=== PATIENT | female | born 1995 | race Hispanic/Latino ===

== ENCOUNTER 2020-10-31 17:58 | Outpatient (CLI) | payer OTHER ==
[~2020-10-31] VITALS: Ht 154.9 cm; Wt 60.3 kg
[2020-10-31 18:24] VITALS: BP 121/58
[2020-10-31] MEDS ORDERED: IRON27TA2 PO (18:27)
[2020-10-31] MEDS ORDERED: ASPI81TA26 PO (18:27)
[2020-10-31] MEDS ORDERED: VITA250T4 PO (18:27)
[2020-10-31] MEDS ORDERED: MULTTAB20 PO (18:27)
[2020-10-31 20:11] LABS: ALBUMIN 2.5 GM/DL (3.2-5.2); ALT/SGPT 12 U/L (12-78); AMYLASE 104 U/L (25-115); BILIRUBIN,TOTAL 0.3 MG/DL (0.2-1.0); BLOOD UREA NITROGEN 5 MG/DL (7-18); CALCIUM LEVEL 8.5 MG/DL (8.5-10.1); CARBON DIOXIDE LEVEL 24 MEQ/L (21-32); CHLORIDE LEVEL 106 MEQ/L (98-107); CREATININE FOR GFR 0.44 MG/DL (0.55-1.30); GLOMERULAR FILTRATION RATE > 60.0 (>60); GLUCOSE, FASTING 108 MG/DL (70-100); LIPASE 110 U/L (73-393); POTASSIUM SERUM 3.7 MEQ/L (3.5-5.1); SODIUM LEVEL 138 MEQ/L (136-145); TOTAL PROTEIN 5.9 GM/DL (6.4-8.2)
[2020-10-31 20:15] VITALS: BP 107/52
[2020-10-31] MEDS ORDERED: metroNIDAZOLE (FLAGYL) 500MG TABLET PO ONE (20:20)
--- NOTE | 2020-10-31 20:52 | IPNPDOC ---
Text Note Date of Service The patient was seen on 10/31/20. NOTE PRE-TERM LABOR TRIAGE EVALUATION HPI: Mrs. Deyanira Retana is a 25yo at 28w0d ega, by LMP c/w 1st trimester ultrasound, who presents to rule-out pre-term labor. Mrs. Retaan reports abdominal discomfort with a single episode of emesis this morning at 01:00. Following, she experienced uncomfortable abdominal/pelvic pressure that is constant. She endorses decreased FM & denies LOF & VB. Otherwise, she endorses urinary frequency. Denies dysuria/hematuria, abnor mal/foul smelling vaginal discharge, fevers/chills, headaches, visual changes, scotomata, RUQ pain, or worsening edema. 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 PHYSICAL EXAMINATION: VS: Normotensive, Afebrile Gen: AAox3, NAD Abd: Gravid, soft, non-distended, NTTP LE: No c/c/e SSE: cervix visibily closed with no vaginal pooling of fluid. fFN obtained. THADDEUS: No hyphae or yeast Wet Prep: + clue cells. No trichomonas present. TVUS: Cervical length 4.1cm SVE: C/T/H NST: BL- 130bpm, moderate variability, + accelerations, - decelerations TOCO: No CTXs Labs: UA - Negative fFN - Discarded secondary to cervical length >2.5cm ASSESSMENT: 25yo at 28w0d ega with abdominal/pelvic pressure most likely secondary to vaginitis (bacterial vaginosis). PLAN: - Flagyl 500mg po bid x7-days for vaginitis - First dose now - Remaining 6.5-day supply called into [facility] [phone] - Pt to follow-up at her 28-week appointment on , 04 November 2020 at 13:30 - Discussed labor precautions and instructed to return to triage for the development of regular uterine contractions, LOF, VB, or decreased FM. - All questions answered Jan Beltran, Ph.D. JAGDEEP & OB-PLANT CULTURE MANAGER Staff VS,Anat I+Jennifer VS, Juan R Coppola+Jennifer Laboratory Tests 10/31/20 19:38 Vital Signs Date Time Temp Pulse Resp B/P (MAP) Pulse Ox O2 Delivery O2 Flow Rate FiO2 10/31/20 20:15 97.9 17 10/31/20 18:24 107 121/58 (79) TRINITY TAMEZ M.D. October 31, 2020 20:52
== END 2020-10-31 20:30 | disposition home or self-care (01) ==
LOC: M LDO 17:58
PROVIDERS: ATTEND Obstetrics & Gynecology Reproductive Endocrinology
DX: O23.593 Infection of other part of genital tract in pregnancy, third trimester (principal); O34.211 Maternal care for low transverse scar from previous cesarean delivery; Z3A.28 28 weeks gestation of pregnancy; Z87.51 Personal history of pre-term labor; Z87.59 Personal history of other complications of pregnancy, childbirth and the puerperium
CPT/HCPCS: 36415; 76815; 80053; 81001; 82150; 83690; G0378; G0463

== ENCOUNTER → 2020-12-17 | Outpatient (CLI) | payer OTHER ==
[~2020-12-17] MED LIST: ASPI81TA26 PO; IRON27TA2 PO; MULTTAB20 PO; VITA250T4 PO
--- NOTE | 2020-12-17 14:56 | REP ---
INDICATION: CHOLESTASIS OF . COMPARISON: None. TECHNIQUE: Transabdominal scanning FINDINGS: Multiple ultrasonographic images of the gravid uterus shows a single living intrauterine gestation in the cephalic presentation. Doppler interrogation of the heart shows a heart rate of 141 beats per minute. The placenta is anterior right lateral and not low lying. Doppler interrogation of the umbilical artery shows an A\B ratio of 2.17. This is within the normal range. The subjective amniotic fluid volume is within normal limits. The calculated amniotic fluid index is 9.7 within expected range 8.0 to 24.9. biophysical profile score is 2 for breathing, 2 for movement, 2 for tone, and 2 for amniotic fluid volume giving a sum total of 8/8. A cervical length measurement was not obtained. IMPRESSION: Limited OB ultrasound as described above. <Electronically signed by Wei Nguyen > 12/17/20 1333
== END ==
LOC: M RAD 13:45
PROVIDERS: ATTEND Registered Nurse Maternal Newborn
DX: Z36.89 Encounter for other specified antenatal screening (principal)

== ENCOUNTER 2020-12-20 19:23 | Outpatient (CLI) | payer OTHER ==
--- NOTE | 2020-12-20 21:29 | IPNPDOC ---
Subjective Date Seen The patient was seen on 12/20/20. Subjective Chief Complaint/HPI Pt is a 25yo at 35w1d by LMP c/w 1TM , DIMITRIS Jan presents to triage with decreased movement. Denies ctx, LOF, VB. She does report an increase in pelvic pressure over the past few days and states she typically does not feel her contractions so is concerned she may be dilated. She is otherwise without complaint today. General: Reports: Normal Appetite; Denies: Chills, Night Sweats, Fatigue, Malaise Constitutional: Denies: Chills, Fever, Night Sweats Pulmonary: Denies: Dyspnea, Cough Cardiovascular: Denies: Chest Pain, Palpitations, Orthopnea, Paroxysmal Noc. Dyspnea, Lt Headedness Gastrointestinal: Denies: Nausea, Vomiting, Abdominal Pain, Diarrhea, Constipation Genitourinary: Denies: Dysuria, Frequency, Incontinence, Retention Psych: Reports: Mood Normal; Denies: Depression, Memory Issues Objective Physical Examination General Exam: Positive: Alert, No Acute Distress Chest Exam: Positive: Normal air movement Heart Exam: Positive: Rate Normal Abdomen Exam: Positive: Other (gravid) Female Exam: Positive: Nl Ext Genitalia; Negative: Lesions, Discharge, Odor, Tenderness Skin Exam: Positive: Nl turgor and temperature; Negative: Rash, Breakdown Neuro Exam: Positive: Normal Speech Psych Exam: Positive: Mental status NL, Mood NL, Oriented x 3 Other physical findings FHT: baseline 130's, mod variability, +accels. Early decel at 2006. No late decelerations [place]: irregular contractions >10min apart SVE: c/t/h Assessment /Plan Assessment 25yo at 35w5d presents with decreased movement. 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 Plan/VTE VTE Prophylaxis Ordered?: No VTE Exclusion Mechanical Proph: Other (triage only visit) Plan Cat 1 FHT, pt now feeling more movement. SVE completed per patient request, c/t/h. Pt scheduled for NST on Sunday this week, and has follow up ARI next week. 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 Strict return precautions given. VS, I&O, 24H, Fishbone Vital Signs/I&O BP 130/63 HR 100 RR 18 Temp 98.2 VERONICA LEAL M.D. Dec 20, 2020 21:29
== END 2020-12-20 21:05 | disposition home or self-care (01) ==
LOC: M LDO 19:23
PROVIDERS: ATTEND Obstetrics & Gynecology
DX: O36.8130 Decreased fetal movements, third trimester, not applicable or unspecified (principal); Z3A.35 35 weeks gestation of pregnancy; Z87.59 Personal history of other complications of pregnancy, childbirth and the puerperium; O34.219 Maternal care for unspecified type scar from previous cesarean delivery; Z91.040 Latex allergy status
CPT/HCPCS: 59025; G0378; G0463

== ENCOUNTER 2021-01-02 18:02 | Outpatient (CLI) | payer OTHER ==
[~2021-01-02] VITALS: Ht 154.9 cm; Wt 64.7 kg
[2021-01-02 18:17] VITALS: BP 134/79
[2021-01-02] MEDS ORDERED: ACYC1CAP20 PO ×2 (18:27)
--- NOTE | 2021-01-02 19:49 | IPNPDOC ---
Text Note Date of Service The patient was seen on 01/02/21. NOTE 01/02/21 1940 25 yo A2 AT 37 WEEKS SEEN IN TRIAGE PELVIC PRESSURE NO VAGINAL BLEEDING OR DISCHARGED . SEEN IN OFFICE 2 DAYS AGO 1 CM , EDC 01/23/21. RISK FACTORS HX DEMISE FOR HSV PREVIOUS CS HX PRE E HX HEART MURMUR HX DEPRESSION ANXIETY HX INTRAHEPATIC CHOLESTASIS OF ASSESSMENT AND PLAN CATAGORY1 STRIP ACCELERATIONS MODERATE VARIABILITY NO DECELERATIONS 1 CONTRACTION MILD. STERILE SPECULUM EXAMINATION NO DISCHARGE NO BLOOD NO VISIBLE LESIONS CERVIX MID POSITION 1 CM HSV SWAB DONE GBS PENDING PLAN PRECAUTIONS GIVEN PLANNED TOLAC . PLANNED MONITORING SUNDAY DISCHARGED UNDELIVERED VS,Fishbone, I+O VS, Fishbone, I+O Vital Signs Date Time Temp Pulse Resp B/P (MAP) Pulse Ox O2 Delivery O2 Flow Rate FiO2 01/02/21 18:17 98.0 112 18 134/79 (97) Otilio Ramirez MD Jan 02, 2021 19:49
== END 2021-01-02 19:40 | disposition home or self-care (01) ==
LOC: M LDO 18:02
PROVIDERS: ATTEND Obstetrics & Gynecology
DX: O26.893 Other specified pregnancy related conditions, third trimester (principal); Z3A.37 37 weeks gestation of pregnancy; R10.2 Pelvic and perineal pain; O34.211 Maternal care for low transverse scar from previous cesarean delivery; Z87.59 Personal history of other complications of pregnancy, childbirth and the puerperium; O99.343 Other mental disorders complicating pregnancy, third trimester; F41.9 Anxiety disorder, unspecified; Z91.040 Latex allergy status; Z79.899 Other long term (current) drug therapy; Z79.82 Long term (current) use of aspirin
CPT/HCPCS: 59025; 87255; G0378; G0463

== ENCOUNTER 2021-01-17 12:05 | Inpatient (IN) | payer OTHER ==
[2021-01-17] VITALS (9 sets, daily range): BP systolic 119–144; BP diastolic 58–80
[~2021-01-17] VITALS: Ht 154.9 cm; Wt 65.3 kg
[~2021-01-17 12:05] MED LIST changes: +ACYC1CAP20 PO
[2021-01-17] MEDS ORDERED: LACTATED RINGER'S 1000 ML IV STA (12:56)
[2021-01-17] MEDS ORDERED: OXYTOCIN DRIP 30 UNITS in IV 1 EA IV PRN (13:00)
[2021-01-17] MEDS ORDERED: METHYLERGONOVINE MALEATE 0.2 MG/ML VIAL (J2210) IM PRN (13:00)
[2021-01-17] MEDS ORDERED: CARBOPROST TROMETHAMINE 250 MCG/ML AMP IM PRN (13:00)
[2021-01-17] MEDS ORDERED: TRANEXAMIC ACID INJection 1,000 MG in NS 100 ML IV PRN (13:00)
[2021-01-17] MEDS ORDERED: ceFAZolin SOD 2 GM in IV 1 EA IV ONE (13:15)
[2021-01-17] MEDS ORDERED: AZITHROMYCIN INJ 500 MG, VIAL MATE ADAPTER 1 EACH in NS 250 ML IV ONE (13:15)
[2021-01-17] MEDS ORDERED: BUPIVACAINE HCL 0.25% 10ML VIAL SC SCH (13:15)
[2021-01-17] MEDS ORDERED: BICITRA 30ML SOLN UDC PO ONE (13:15)
[2021-01-17] MEDS ORDERED: HOME MED LIST COMPLETE! XX SCH (13:25)
[2021-01-17] MEDS: LR 1,000 ML IV SCH ×3 (13:55→21:00)
--- NOTE | 2021-01-17 16:08 | HPEPDOC ---
Obstetrical History & Physical General Date of Admission Jan 17, 2021 at 12:05 History of Present Illness 25 yo at 39w1d with DIMITRIS of 23 JAN 2021 presents to L&D for TOLAC VesnaFLORENTINO. Estefany he is feeling well today with no complaints at this time. She reports intermittent irregular contractions. She denies vaginal bleeding, leaking of fluid, and reports positive movement. She has been thoroughly counseled in the clinic for TOLAC. She has supportive family at the bedside. Interval History: Hx of cholestasis Hx of oligohydramnios Hx of pre-eclampsia Hx of delivery at 36 weeks Hx of section Hx of demise at 10 days d/t congenital HSV HSV 1 IgG Heart murmur Hx of depression/grief Chief Complaint: Induction of labor (elective TOLAC IOL) Information Provided By: Patient Age: 25 : 6 Term: 3 Pre-term: 1 Abortions: 1 Livin Care Care: Good Care Dating Final EDC: Jan 23, 2021 Final EDC by: LMP, 1st trimester (US) EGA at Admission: 39.1 Antepartum Course Height (inches): 61 Pre- weight (lbs.): 110 Admission Weight (lbs.): 145 Change in Weight (lbs.): 35 Past Medical History Past Obstetrical History #1: Past Obstetrical History: Multigravida Date of Delivery: Nov 23, 2010 Gestation: 38 Type of Delivery: Spontaneous Vaginal Del. Sex of : Female Weight of (grams): 2268 Complications: Yes (oligohydramnios) Past Obstetrical History #2: Past Obstetrical History: Multigravida Date of Delivery: Sep 12, 2014 Gestation: 37 Type of Delivery: Spontaneous Vaginal Del. Sex of : Male Weight of Infant (grams): 2551 Complications: Yes (Cholestasis) Past Obstetrical History #3: Past Obstetrical History: Multigravida Date of Delivery: May 10, 2017 Gestation: 37 Type of Delivery: Spontaneous Vaginal Del. 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, HSV 1 IgG, Heart murmur, Hx of depression/grief Surgical History: section Family History Significant Family History: No pertinent family hx Social History Marital Status: Psychosocial History: Other (Hx of PP depression, grief) * Smoker: non-smoker Alcohol: Denies Drugs: denies Abuse Violence Screening Have you been hit/kicked/slapp: No Have you been sexually assault: No Allergies Coded Allergies: latex (Verified Allergy, Intermediate, Rash, 10/31/20) Medications Scheduled Acyclovir (Acyclovir) 200 Mg Capsule, 500 MG PO BID Ascorbic Acid (Vitamin C) 250 Mg Tablet, 1 TAB PO DAILY Aspirin (Aspirin EC) 81 Mg Tablet.dr, 1 TAB PO DAILY for pain Ferrous Gluconate (Iron) 236 Mg Tablet, 1 TAB PO DAILY No122/Iron/Folic Acid ( Multi Tablet) 1 Each Tablet, 1 TAB PO DAILY Physical Examination Physical Examination GENERAL: Alert and oriented times three. BREAST: . ABDOMEN: Gravid and non-tender to touch. FETUS: Is vertex (VTX) by sterile vaginal examination (SVE), fetus is vertex (VTX) by Guilherme. HEART RATE: Regular rate and rhythm. LUNGS: Clear to auscultation (CTA). EXTREMITIES: No edema. No clonus. Deep tendon reflexes (DTRs) + 2. Sterile speculum exam: No blood or active bleeding noted in the vaginal vault. No pooling of fluid noted in the vaginal vault. 2 small ulcerative lesions noted on the cervix consistent with HSV. Cervix appears closed and thick by speculum exam. Vital Signs/I&O Vital Signs Date Time Temp Pulse Resp B/P (MAP) Pulse Ox O2 Delivery O2 Flow Rate FiO2 01/17/21 12:26 98.4 107 18 140/79 (99) 97 Room Air Laboratory Data 24H LABS Laboratory Tests 2 01/17/21 12:18: Serology Scanned Report Hepatitis B Testing 01/17/21 12:57: Pertinent Laboratoy Data Blood Type: O+ RBC Antibody Screen: Negative HIV: Negative Hepatitis B: Negative Rapid Plasma Reagin: Nonreactive Rubella: Immune Varicella: Immune Chlamydia/Gonorrhea: Negative Group B Streptococcus: Negative Cystic Fibrosis: Negative Glucose Tolerance Test: 119 Assessment Heart Rate (FHR): 130 Variability: Moderate Accelerations: Present Decelerations: None Tocometer Contractions: Yes Frequency: irregular Multi-drug resistant Organism: No history of MDRO Assessment/Plan Assessment Assessment: IUP at 39w1d Active HSV lesions Plan Admit and orient. [employer] and consent. Diet: NPO. Group B Streptococcus (GBS) negative. Labs and intravenous (IV) per unit protocol. She last ate at 1130 today. Lactated Ringers (LR): Bolus 1000 mL, then at 125 mL/hr. Anticipate C-S around [address] Morgan notified of patient status and agrees with plan for section Labor and Delivery Counseling Discussed findings with the patient and plan for section. Patient and her spouse are agreeable with the plan to move forward with section. WENDY ULLOA CNM Jan 17, 2021 13:18
[2021-01-17 16:37] LABS: HEMATOCRIT 34.9 % (36.0-47.0); HEMOGLOBIN 11.3 g/dl (12.0-15.5); MEAN CORPUSCULAR HEMOGLOBIN 27.7 pg (27.0-33.0); MEAN CORPUSCULAR HGB CONC 32.4 g/dl (32.0-36.5); MEAN CORPUSCULAR VOLUME 85.5 fl (80.0-96.0); PLATELET COUNT, AUTOMATED 270 10^3/uL (150-450); RED BLOOD COUNT 4.08 10^6/uL (4.00-5.40); WHITE BLOOD COUNT 11.3 10^3/uL (4.0-10.0)
[2021-01-17] MEDS ORDERED: PHENYLephrine 500MCG 5ML (100MCG/ML) SYRINGE As Ordered ONE (19:13)
[2021-01-17] MEDS ORDERED: ePHEDrine SULFATE 25 MG/5 ML(5MG/ML) SYRINGE As Ordered ONE (19:13)
[2021-01-17] MEDS ORDERED: MORPHINE PRES-FREE INJ 10 MG/10 ML VIAL (J2274) As Ordered ONE (19:13)
[2021-01-17] MEDS ORDERED: ONDANSETRON 4MG/2ML VIAL As Ordered ONE (19:13)
[2021-01-17] MEDS ORDERED: KETOROLAC 60MG 2ML VIAL As Ordered ONE (19:13)
[2021-01-17] MEDS ORDERED: dexameTHASONE 4 MG/ML 1ML VIAL (J1100 PER 1MG) As Ordered ONE (19:13)
[2021-01-17] MEDS ORDERED: OXYTOCIN INJ 10 UNITS/ML VIAL (J2590) As Ordered ONE (19:13)
[2021-01-17] MEDS ORDERED: OXYTOCIN 30 UNITS IN 0.9% NaCl 500ML IV BAG (J2590) As Ordered ONE (19:13)
[2021-01-17] MEDS ORDERED: NALBUPHINE HCL 10 MG/ML AMP (J2300) IV PRN (19:29)
[2021-01-17] MEDS ORDERED: diphenhydrAMINE 50MG/ML VIAL (J1200) IV PRN (19:29)
[2021-01-17] MEDS ORDERED: ONDANSETRON 4MG/2ML VIAL IV PRN ×2 (19:29→21:05)
[2021-01-17] MEDS ORDERED: NALOXONE INJ 0.4MG/1ML VIAL (J2310 PER 1MG) IV PRN ×2 (19:29)
[2021-01-17] MEDS ORDERED: METOCLOPRAMIDE INJ 10MG/2ML VIAL (J2765 PER 1) IV PRN (19:29)
[2021-01-17] MEDS ORDERED: BUPIVACAINE HCL 0.25% 10ML VIAL SC ONE (19:55)
[2021-01-17] MEDS ORDERED: BUPIVACAINE HCL 0.25% 10ML VIAL As Ordered ONE (19:56)
[2021-01-17] MEDS ORDERED: ACETAMINOPHEN TAB 650MG DOSE (2X325MG) PO PRN (20:35)
[2021-01-17] MEDS ORDERED: RHOGAM 300 MCG (1500 IU) INJ (J2790) IM SCH (20:35)
[2021-01-17] MEDS ORDERED: ACETAMINOPHEN 500 MG TAB PO PRN (20:35)
[2021-01-17] MEDS ORDERED: oxyCODONE 5MG TAB PO PRN ×2 (20:35→21:05)
[2021-01-17] MEDS ORDERED: MEASLES,MUMPS,RUBELLA VACCINE INJ (MMR-II) (90707) SC SCH (20:35)
[2021-01-17] MEDS ORDERED: METHYLERGONOVINE MALEATE 0.2 MG TAB PO PRN (20:35)
[2021-01-17] MEDS ORDERED: ONDANSETRON 4 MG TAB PO PRN (20:35)
[2021-01-17] MEDS ORDERED: SIMETHICONE 80MG CHEW TAB PO PRN (20:35)
[2021-01-17] MEDS ORDERED: DOCUSATE SODIUM 100MG CAPSULE PO PRN (20:35)
--- NOTE | 2021-01-17 20:50 | ROOPDOC ---
[facility] Report Of Operation Report of Operation DATE OF PROCEDURE: 01/17/21 PREPROCEDURE DIAGNOSES: Active HSV lesion. history of section POSTPROCEDURE DIAGNOSES: Active HSV lesion History of section. PROCEDURE PERFORMED: Repeat low transverse section. SURGEON: Maribel Leal MD GAME FARM HELPER: Domenica eDla Cruz CNM ANESTHESIA: Spinal ESTIMATED BLOOD LOSS: Approximately 600 mL. COMPLICATIONS: none. REMARKS: none. FINDINGS: Live male, 3300g (7#4oz). Compound delivery with L arm. Normal appearing uterus. Tubes/ovaries obstructed by bowel - not visualized SPECIMENS REMOVED: placenta, discarded PROCEDURE NOTE: Pfannenstiel skin incision over prior scar. Low transverse hysterotomy. Infant delivered in cephalic presentation with left arm presenting next to face. Hysterotomy repaired in 2 layers. Peritoneum reapproximated. Fascia closed with 0-PDS. Subcutaneous tissue irrigated and reapproximated. Skin closed with 4-0 monocryl. DESCRIPTION OF PROCEDURE: Patient taken to the OR with SCD's on and IV fluids running. Placed in dorsal supine position with a leftward tilt. 2g Ancef administered compensation administrator to the OR. Thorpe in place. She was prepped and draped in normal sterile fashion and regional anesthesia found to be adequate. Time out performed. Pfannenstiel skin incision made with a scalpel and taken to the level of the fascia with a scalpel. Fascia incised and extended bilaterally with perry scissors. Superior aspect of fascia elevated with krish clamps and dissected off of the rectus muscle with perry scissors. This was repeated in similar fashion with inferior aspect of fascia. Rectus muscles were in the midline and peritoneum entered bluntly. No adhesions noted, and p eritoneum extended bluntly with lateral and downward traction. Mobius retractor inserted and vesicouterine peritoneum identified. Bladder flap created. Incision made in lower uterine segment in a curvilinear fashion and extended bluntly with cranio-caudal traction. Fetus in cephalic presentation with left arm protruding through hysterotomy next to face. Vertex elevated to level of hysterotomy and head and left arm delivered with fundal pressure, followed by remainder of 's body. Cord doubly clamped and cut and taken to warmer. Placenta delivered intact. Uterus wiped of clots and membranes. Hysterotomy closed in two layers with 0-monocyrl suture in a running locked fashion followed by an imbricating layer. Hysterotomy inspected and found to be hemostatic. Retractor removed and rectus and fascia inspected with good hemostasis noted. Peritoneum reapproximated. Fascia closed with 0-PDS suture. Subcutaenous layer irrigated and hemostasis acheived with bovie cautery. Subcutaenous layer reapproximated with 2-0 vicryl. Skin closed with 4-0 monocryl and pressuer dressing applied. Vaginal sweep performed with minimal bleeding noted. Mom and baby to PACU in stable condition. MARIBEL LEAL M.D. Jan 17, 2021 20:50
[2021-01-17] MEDS ORDERED: LR 1,000 ML IV SCH (21:05)
[2021-01-17] MEDS ORDERED: fentaNYL 100 MCG/2 ML INJECTION (J3010) IV PRN (21:05)
[2021-01-18] VITALS: BP 129/62
[2021-01-18 02:00] VITALS: BP 121/56
[2021-01-18] MEDS: KETOROLAC 30 MG/ML 1ML VIAL IV SCH ×3 (02:24→15:34)
[2021-01-18] MEDS: LR 1,000 ML IV SCH ×2 (05:17→13:00)
[2021-01-18 06:00] VITALS: BP 113/52
--- NOTE | 2021-01-18 07:26 | IPNPDOC ---
Progress Note Date of Service: Jan 18, 2021 Progress Note SUBJECT: 25 yo G6 now P4113 delivered at 39w1d status post uncomplicated repeat LTCS at 2000 hours on Jan 22 of a Male 7 pounds 4 ounces doing well postop day #1. She has been ambulating, and tolerating regular diet. Thorpe catheter removed this AM, pt has not yet been able to void. Breast feeding without issue. Reports lochia is minimal. OBJECTIVE: VITAL SIGNS: Within normal limits, afebrile. Alert and oriented times three. normal work of breathing Heart rate: Regular rate and rhythm, no murmurs, rubs or gallops. Abdomen: Fundus firm at U-2. Soft, NTTP. Pressure dressing in place, no strikethrough. Pt feeding baby at this time, will remove when ready to shower ASSESSMENT: 25 yo G6 now P4113 delivered at 39w1d status post uncomplicated r epeat LTCS at 2000 hours on Jan 22 of a Male infant 7 pounds 4 ounces doing well postop day #1. Vitals within normal limits, afebrile, hemodynamically stable with no evidence of infection. PLAN: 1. Discharge to home tomorrow. Follow up on postop CBC and DTV 2. Tylenol, Motrin and oxycodone for pain. 3. Encourage breast feeding and ambulation. 4. Undecided on depoProvera vs. Paragard IUD for contraception. Discuss at 6wk visit. Desires circumcision for infant 5. Routine PP visit in 6 weeks in clinic and incision check in 2 weeks 6. Discussed return precautions at length. VS, I&O, 24H, Romanbone Vital Signs/I&O Vital Signs Date Time Temp Pulse Resp B/P (MAP) Pulse Ox O2 Delivery O2 Flow Rate FiO2 01/18/21 06:00 98.6 91 20 113/52 (72) 99 Room Air I&O- Last 24 Hours up to 6 AM 01/18/21 06:00 Intake Total 3323 ml Output Total 2500 ml Balance 823 ml Laboratory Data 24H LABS Laboratory Tests 2 01/17/21 12:18: Serology Scanned Report Hepatitis B Testing 01/17/21 12:57: Coronavirus (COVID-19)(PCR) NEGATIVE 01/17/21 13:43: Nucleated Red Blood Cells % (auto) 0.0 01/17/21 16:16: Syphilis Serology NONREACTIVE CBC/BMP Laboratory Tests 01/17/21 13:43 VERONICA LEAL M.D. Jan 18, 2021 07:26
[2021-01-18 07:31] LABS: HEMATOCRIT 33.4 % (36.0-47.0); HEMOGLOBIN 10.6 g/dl (12.0-15.5); MEAN CORPUSCULAR HEMOGLOBIN 27.5 pg (27.0-33.0); MEAN CORPUSCULAR HGB CONC 31.7 g/dl (32.0-36.5); MEAN CORPUSCULAR VOLUME 86.8 fl (80.0-96.0); PLATELET COUNT, AUTOMATED 312 10^3/uL (150-450); RED BLOOD COUNT 3.85 10^6/uL (4.00-5.40); WHITE BLOOD COUNT 17.6 10^3/uL (4.0-10.0)
[2021-01-18] MEDS: valACYclovir HCL 500 MG TAB PO SCH ×2 (09:20→21:36)
[2021-01-18] MEDS: PRENATAL VITAMINS CHEWABLE TABLET PO SCH (09:20)
[2021-01-18 10:00] VITALS: BP 107/56
[2021-01-18 14:00] VITALS: BP 112/54
[2021-01-18 18:00] VITALS: BP 120/61
[2021-01-18] MEDS: IBUPROFEN 800 MG TAB PO SCH (21:35)
[2021-01-19 02:00] VITALS: BP 107/57
[2021-01-19] MEDS: IBUPROFEN 800 MG TAB PO SCH (05:54)
[2021-01-19 06:00] VITALS: BP 116/68
--- NOTE | 2021-01-19 06:58 | OBDS ---
[facility] Obstetrical Discharge Sum. Obstetrical Discharge Summary Date: Jan 19, 2021 A/P, Post Course List any complications Admission diagnosis: hx of prior C/S, Active HSV Lesions Discharge diagnosis: same as above Condition at Discharge: stable Discharge Instructions: Home Activity: pelvic rest, no lifting anything heavier that 15lb Diet: regular Medications: Juany Follow-up: 2 and 6 weeks pp SUBJECT: 25 yo G6 now P4113 delivered at 39w1d status post uncomplicated repeat LTCS at 2000 hours on Jan 22 of a Male infant 7 pounds 4 ounces doing well postop day #2. She has been ambulating, and tolerating regular diet. Fvoiding without issues. Breast feeding without issue. Reports lochia is minimal. OBJECTIVE: VITAL SIGNS: Within normal limits, afebrile. Alert and oriented times three. normal work of breathing Heart rate: Regular rate and rhythm, no murmurs, rubs or gallops. Abdomen: Fundus firm at U-2. Soft, NTTP. Pressure dressing in place, no strikethrough. Pt feeding baby at this time, will remove when ready to shower ASSESSMENT: 25 yo G6 now P4113 delivered at 39w1d status post uncomplicated repeat LTCS at 2000 hours on Jan 22 of a Male 7 pounds 4 ounces doing well postop day #2. Vitals within normal limits, afebrile, hemodynamically stable with no evidence of infection. PLAN: 1. Discharge to home today 2. Tylenol, Motrin and oxycodone for pain. 3. Encourage breast feeding and ambulation. 4. Undecided on depoProvera vs. Paragard IUD for contraception. Discuss at 6wk visit. Desires circumcision for 5. Routine PP visit in 6 weeks in clinic and incision check in 2 weeks 6. Discussed return precautions at length LINSEY LAWRENCE MD Jan 19, 2021 6:07 am
[2021-01-19] MEDS ORDERED: OXYC-517 PO (07:02)
[2021-01-19] MEDS ORDERED: IBUP80TA PO (07:02)
[2021-01-19] MEDS ORDERED: COLA100C5 PO (07:02)
[2021-01-19] MEDS ORDERED: ACET-683 PO (07:02)
[2021-01-19] MEDS: PRENATAL VITAMINS CHEWABLE TABLET PO SCH (08:10)
[2021-01-19] MEDS: valACYclovir HCL 500 MG TAB PO SCH (08:10)
--- NOTE | 2021-01-21 18:49 | IPN ---
PROGRESS NOTE DATE: 01/18/2021 This patient requested circumcision of her male . After discussing risks and benefits of circumcision, the medical, the nonmedical indications, the penile block and aftercare, expressed understanding of penile block aftercare and bleeding, signed the consent form. All questions were answered. Twenty minute discussion. We await clearance by the forensics analyst. cc: Akila Henderson OB
== END 2021-01-19 14:00 | disposition home or self-care (01) | DRG 772 ==
LOC: M LDI 12:05 → M OBS 21:35
PROVIDERS: ADMIT Registered Nurse Maternal Newborn; ATTEND Physician Assistant
PROC: 10D00Z1 Extraction of Products of Conception, Low, Open Approach (ICD-10-PCS; principal; 2021-01-17 19:30)
DX: O34.211 Maternal care for low transverse scar from previous cesarean delivery (principal); O98.52 Other viral diseases complicating childbirth; Z3A.39 39 weeks gestation of pregnancy; Z37.0 Single live birth; B00.9 Herpesviral infection, unspecified